=== PATIENT | female | born 1965 | race Asian ===

== ENCOUNTER 2020-09-14 20:44 | Emergency (ER) | payer OTHER ==
[~2020-09-14] VITALS: Ht 157.5 cm; Wt 56.7 kg
[2020-09-14 20:51] VITALS: Ht 157.5 cm; Wt 56.7 kg
[2020-09-15 00:17] VITALS: BP 154/87
== END 2020-09-15 00:17 | disposition home or self-care (01) ==
LOC: ED 20:44
DX: S13.4XXA Sprain of ligaments of cervical spine, initial encounter (principal); S33.5XXA Sprain of ligaments of lumbar spine, initial encounter; S40.022A Contusion of left upper arm, initial encounter; S80.11XA Contusion of right lower leg, initial encounter; S20.212A Contusion of left front wall of thorax, initial encounter; I10 Essential (primary) hypertension; V49.49XA Driver injured in collision with other motor vehicles in traffic accident, initial encounter; Y93.I9 Activity, other involving external motion; Y92.488 Other paved roadways as the place of occurrence of the external cause; Y99.8 Other external cause status
CPT/HCPCS: J1885